=== PATIENT | female | born 1945 | race Two or more races ===

== ENCOUNTER → 2021-10-27 11:34 | Outpatient (BNVA) | payer OTHER, SELFPAY | PROVIDERS: PCP Internal Medicine; Visit Provider Nurse Practitioner Family | DX: Z13.89 Encounter for screening for other disorder (principal) ==

== ENCOUNTER → 2021-12-25 11:24 | Outpatient (BNVA) | payer OTHER, SELFPAY | PROVIDERS: PCP Internal Medicine; Visit Provider Nurse Practitioner Family | DX: G20 Parkinson's disease (principal) ==

== ENCOUNTER → 2022-11-19 10:52 | Outpatient (BNVA) | payer OTHER, SELFPAY | PROVIDERS: PCP Internal Medicine; Visit Provider Nurse Practitioner Family | DX: J32.9 Chronic sinusitis, unspecified (principal); G20 Parkinson's disease; K08.89 Other specified disorders of teeth and supporting structures; H92.09 Otalgia, unspecified ear ==

== ENCOUNTER 2022-12-18 10:12 | Outpatient (REF) | payer MEDICARE, SELFPAY ==
--- NOTE | ~2022-12-18 | CT_ITS ---
EXAMINATION: CT MAXILLOFACIAL WITHOUT CONTRAST CLINICAL INFORMATION: Other specified disorders of nose and nasal sinuses. COMPARISON: None. TECHNIQUE: Multidetector helical imaging was performed in the axial plane with generation of coronal and sagittal reformatted images. This CT examination was performed using dose optimization techniques as appropriate, variously including the following: *Automated exposure control *Adjustment of mA and/or kV according to patient size (this includes techniques or standardized protocols for targeted exams where dose is matched to indication/reason for exam; i.e. extremities or head) *Use of iterative reconstruction technique DLP: 76 mGy-cm. FINDINGS: There is severe mucosal thickening within the inferior frontal sinus with opacification of the frontoethmoidal recess and layering aerated secretions. There is moderate right ethmoid mucosal thickening more significant anteriorly. The right maxillary sinus is completely opacified with soft tissue noted opacifying the ethmoidal infundibulum. The left frontal sinus is clear. There is minimal left ethmoid mucosal thickening. There is mild mucosal thickening in the right sphenoid sinus with opacification of the sphenoethmoidal recess. There is lobular mucosal thickening along the left maxillary sinus floor. The nasal septum is essentially midline with a leftward projecting septal spur. The ethmoid roofs are symmetric. The lamina papyracea are intact. The carotid impression is covered with bone. There is periapical lucency about the right posterior maxillary molar the buccal roots appear dehiscent into the maxillary sinus floor. The mastoid air cells and visualized middle ear cavities are well aerated. The orbits are normal. The TMJs are unremarkable. The imaged portions of the brain demonstrate no acute abnormality. CT/CT sinus wo IV con IMPRESSION: Right ostiomeatal unit paranasal sinus mucosal thickening and opacification including opacification of the ethmoidal infundibulum. Aerated secretions seen in the right frontal sinus. Right posterior maxillary molar periapical disease is noted with dehiscence into the maxillary sinus floor, possibly reflecting odontogenic sinusitis. Essentially midline nasal septum with leftward projecting septal spur.
== END 2022-12-18 10:13 | disposition home or self-care (01) ==
LOC: HO.CT 10:12
PROVIDERS: PCP Internal Medicine; Visit Provider Nurse Practitioner Family
DX: K08.89 Other specified disorders of teeth and supporting structures (principal); J34.89 Other specified disorders of nose and nasal sinuses
CPT/HCPCS: 70486

== ENCOUNTER 2023-04-03 11:01 | Outpatient (AMB) | payer OTHER, SELFPAY ==
--- NOTE | 2023-04-03 11:15 | MHC.OFFVIS ---
Intake Vital Signs 04/03/23 11:16 Height 5 ft Weight 109 lb 2 oz BMI 21.3 BP 128/78 Blood Pressure Location Rt brachial Position Sitting Pulse 69 Pulse Source Pulse Oximeter Pulse Oximetry (%) 98 Oxygen Delivery Method Room Air Intake Visit Reasons: 4month follow up Intake Note: Patient presents for 4 month follow up. Patient states I've lost a lot of weight,I got sick at the begining of the year with sinus infection and have been loosing weight since then. Allergies oxycodone Allergy (Severe, Verified 04/03/23 11:17) Dizziness nitrofurantoin [From Macrobid] Allergy (Mild, Verified 04/03/23 11:17) Rash fexofenadine [From Omayra] Adverse Reaction (Mild, Verified 04/03/23 11:17) Headache Medication List - Last Reconciled 04/03/23 by KESHAV Kidd amlodipine-benazepril 5-20 mg 1 cap PO DAILY amoxicillin-pot clavulanate 1,000-62.5 mg 2 tabs PO Q12H 7 days ascorbate calcium (vitamin C) 500 mg PO DAILY aspirin 81 mg PO DAILY atorvastatin 10 mg PO DAILY carbidopa-levodopa 25-100 mg 1.5 tabs PO QID 30 days carbidopa-levodopa 36.25-145 mg ER (Rytary) 2 caps PO QID 30 days chair, wheel (Wheel chair) electric wheelchair evaluation fluticasone propionate 50 mcg/actuation 1 spray intranasal BID hydrochlorothiazide 12.5 mg PO DAILY multivitamin 1 tab PO DAILY omeprazole 20 mg PO DAILY pregabalin 100 mg PO TID 30 days ropinirole 0.25 mg PO TID 30 days vitamin B complex (B Complex-Vitamin B12 tablet) 1 tab PO DAILY HPI HPI Comments History of Present Illness Details 77-yr-old female presents for f/u visit. Since the last visit, sinus CT revealed right paranasal sinus dz and right posterior maxillary molar periapical dz with dehiscence into the maxillary sinus floor She had a 21-day course of ABT. She did develop an oral thrush which was treated and resolved. The headache/face pain has resolved. Her sense of smell and taste has not returned. Her appetite is absent- but is making herself eat. She is scheduled for the right upper molar excision. She is scheduled for f/u sinus CT and ENT f/u afterwards. She is also scheduled for upcoming eye surgery. Pt's current PD medication regimen: Rytary 35.25-145mg 2 caps qid. She states her son thinks she should come off her PD meds. She thinks maybe it makes her more mood is more irritable, especially towads her . ADL's: Ind- but slow. Swallowing: No issues Cough: Prone to coughing Drooling: None Orthostatic lightheadedness: Mild. Constipation: Mild- miralax, prunes and figs help. Freezing: Stable. Gait: Her balance is still off. She has not had the w/c eval yet. Stiffness: Some leg stiffness. Tremor: None Hallucinations: None Memory: Stable Sleep: Sleeps varies Other: Her neuropathic foot pain is more noticable. ? CT/CT sinus wo IV con IMPRESSION: Right ostiomeatal unit paranasal sinus mucosal thickening and opacification including opacification of the ethmoidal infundibulum. Aerated secretions seen in the right frontal sinus. Right posterior maxillary molar periapical disease is noted with dehiscence into the maxillary sinus floor, possibly reflecting odontogenic sinusitis. Essentially midline nasal septum with leftward projecting septal spur. [facility] Surgical History H/O foot surgery H/O hernia repair H/O: hysterectomy Social History Alcohol intake: never Patient Tobacco Use Status: Never used Tobacco Review of Systems Const All systems reviewed & are unremarkable except as noted in HPI and below Physical Exam Vital Signs: Last Vital Signs Pulse 69 04/03/23 11:16 BP 128/78 04/03/23 11:16 Pulse Ox 98 04/03/23 11:16 Oxygen Delivery Method Room Air 04/03/23 11:16 BMI result Body Mass Index 21.3 Const General: cooperative and no acute distress Resp Effort & Inspection: normal respiratory effort and able to speak in complete sentences Neuro Other: Cognition: A&O x's 3 Expression: decreased expression and blink Voice: hoarseness w/ hypophonia Tremor: none FFM: mild bradykinesia Foot taps: moderate bradykinesia Gait: Sitting upright in w/c. Psych: Pleasant affect. General: patient oriented x3 Assessment & Plan Assessment & Plan (1) Parkinson disease: Code(s): G20 - Parkinson's disease (2) Polyneuropathy: Comment: BUE EMG/NCS 2017: mild right median neuropathy at wrist; mild bilateral nerve entrapment at elbows; diffuse poly-sensory demyelinating neuropathy. BLE EMG/NCS 2017: BLE sural sensory neuropathy; right S1 radiculopathy w/ prolonged H reflex; BLE L5 chronic radiculopathy with peroneal/fibular reduced amplitude w/out conduction block. BLE skin biopsy: small fiber neuropathy. Code(s): G62.9 - Polyneuropathy, unspecified (3) Cerebral aneurysm: Code(s): I67.1 - Cerebral aneurysm, nonruptured Plan Decrease Rytary from 36.25-145mg- 2 caps qid to 23.75-95mg cap- 2 caps qid. Continue Pregabalin to 100mg tid- consider increasing in f/u. Previous med tx's: CD-LD- wearing off. Ropinirole at 0.25mg tid- not very effective. f/u brain MRA as scheduled. For electric w/c evaluation request- will resend order to [facility] pending. ? F/u w/ ENT and oral surgeon as scheduled. ? F/u in 3 months or sooner prn new/worsening s/s. Medications: New carbidopa-levodopa 23.75-95 mg ER (Rytary) divide evenly over waking hours 2 caps PO QID 30 days 240 caps 3RF Discontinued carbidopa-levodopa 25-100 mg Discontinued Reason: Doctor's Order 1.5 tabs PO QID 30 days 180 tabs 6RF carbidopa-levodopa 36.25-145 mg ER (Rytary) divide evenly over waking hours Discontinued Reason: Doctor's Order 2 caps PO QID 30 days 240 caps 3RF Coding Level of Care Code Est Pt Level 4 (41465) Diagnoses Parkinson disease G20 Polyneuropathy G62.9 Cerebral aneurysm I67.1
[2023-04-03 11:16] VITALS: BP 128/78; PULSE 69; O2SAT 98; BMI 21.3
== END 2023-04-03 11:54 | disposition home or self-care (01) ==
PROVIDERS: Visit Provider Nurse Practitioner Family
DX: G20 Parkinson's disease (principal); G62.9 Polyneuropathy, unspecified; I67.1 Cerebral aneurysm, nonruptured
CPT/HCPCS: 99214

== ENCOUNTER → 2023-04-03 11:01 | Outpatient (BNVA) | payer OTHER, SELFPAY | PROVIDERS: Visit Provider Nurse Practitioner Family | DX: J32.9 Chronic sinusitis, unspecified (principal); G20 Parkinson's disease; K08.89 Other specified disorders of teeth and supporting structures; H92.09 Otalgia, unspecified ear ==

== ENCOUNTER 2023-07-19 12:55 | Outpatient (AMB) | payer OTHER, SELFPAY ==
--- NOTE | 2023-07-19 12:57 | MHC.OFFVIS ---
Intake Vital Signs 07/19/23 12:58 Height 5 ft Weight 109 lb BMI 21.3 BP 110/76 Blood Pressure Location Rt brachial Position Sitting Pulse 76 Pulse Source Pulse Oximeter Pulse Oximetry (%) 99 Intake Visit Reasons: 3 mo f/u -Confirmed Intake Note: Patient presents for 3 month follow up. Allergies oxycodone Allergy (Severe, Verified 07/19/23 13:00) Dizziness nitrofurantoin [From Macrobid] Allergy (Mild, Verified 07/19/23 13:00) Rash fexofenadine [From Omayra] Adverse Reaction (Mild, Verified 07/19/23 13:00) Headache Medication List - Last Reconciled 07/19/23 by KESHAV Kidd amlodipine-benazepril 5-20 mg 1 cap PO DAILY amoxicillin-pot clavulanate 1,000-62.5 mg 2 tabs PO Q12H 7 days ascorbate calcium (vitamin C) 500 mg PO DAILY aspirin 81 mg PO DAILY atorvastatin 10 mg PO DAILY carbidopa-levodopa 23.75-95 mg ER (Rytary) 2 caps PO QID 30 days chair, wheel (Wheel chair) electric wheelchair evaluation fluticasone propionate 50 mcg/actuation 1 spray intranasal BID hydrochlorothiazide 12.5 mg PO DAILY multivitamin 1 tab PO DAILY omeprazole 20 mg PO DAILY pregabalin 100 mg PO TID 30 days ropinirole 0.25 mg PO TID 30 days vitamin B complex (B Complex-Vitamin B12 tablet) 1 tab PO DAILY HPI HPI Comments History of Present Illness Details 77-yr-old female presents for f/u visit, accompanied by her . Pt denies any significant interval medical changes. Pt's current PD medication regimen: Rytary 23.75-95mg 2 caps qid. She states that since decreasing the Rytary her Left leg is becoming more stuck, and her Right leg is becoming weaker, giving out while walking. However, she is less dizzy and foggy. Of note, she did stop her HCTZ d/t urinary frequency. She thinks she stopped this after the Rytary. She does think that her feet are swelling a bit more, but does not want to try it again as her urinary s/s have improved. She is complaint w/ compression socks. Denies any face pain. ADL's: Ind- but slow. Swallowing: No issues Cough: Prone to coughing Drooling: None Orthostatic lightheadedness: Better. Constipation: Increased- despite taking miralax 1 cap a couple of times a week, prunes and figs help. Freezing: Left leg is freezing Gait: She has had a few falls- d/t the leg freezing/weakness. Using a walker but it is more difficult. She did have electric w/c eval- but the w/c was too big/burdensome. She bought an alternate power chair on her own from [employer]. Stiffness: Leg stiffness. Tremor: None Hallucinations: None Memory: Feels a bit more word finding/stalling- worse since we reduced the Rytary, Sleep: Sleeping ok Other: Her feet may swell at night, and still has neuropathic foot pain. [facility] Surgical History H/O foot surgery H/O: hysterectomy H/O hernia repair Social History Alcohol intake: never Patient Tobacco Use Status: Never used Tobacco Review of Systems Const All systems reviewed & are unremarkable except as noted in HPI and below Physical Exam Vital Signs: Last Vital Signs Pulse 76 07/19/23 12:58 BP 110/76 07/19/23 12:58 Pulse Ox 99 07/19/23 12:58 BMI result Body Mass Index 21.3 Const General: cooperative and no acute distress HEENT Head: Yes normocephalic Resp Effort & Inspection: normal respiratory effort and able to speak in complete sentences Neuro Other: Cognition: A&O x's 3 Expression: decreased expression and blink Voice: hoarseness w/ hypophonia Tremor: none FFM: mild bradykinesia Foot taps: moderate bradykinesia Gait: Sitting upright in w/c. Psych: Pleasant affect. General: CN's II-XI intact bilaterally Psych Mental Status: mental status grossly normal Assessment & Plan Assessment & Plan (1) Parkinson's disease without dyskinesia: Code(s): G20.A1 - Parkinson's disease without dyskinesia, without mention of fluctuations (2) Frequent falls: Code(s): R29.6 - Repeated falls (3) Polyneuropathy: Comment: [facility]ONAL EMG/NCS 2017: mild right median neuropathy at wrist; mild bilateral nerve entrapment at elbows; diffuse poly-sensory demyelinating neuropathy. BLE EMG/NCS 2017: BLE sural sensory neuropathy; right S1 radiculopathy w/ prolonged H reflex; BLE L5 chronic radiculopathy with peroneal/fibular reduced amplitude w/out conduction block. BLE skin biopsy: small fiber neuropathy. Code(s): G62.9 - Polyneuropathy, unspecified (4) Constipation: Code(s): K59.00 - Constipation, unspecified Plan Increase Rytary from 23.75-95mg cap- 2 caps qid to 36.25-145mg- 2 caps qid- in hopes this helps her gait w/o exacerbating dizziness now that she has stopped HCTZ. Increase Miralax to 1/2-1 cap qod. Continue Pregabalin to 100mg tid- consider increasing in f/u. Home PT for PT eval & tx for home safety, gait, strength & endurance eval & tx. 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 Previous med tx's: CD-LD- wearing off. Ropinirole at 0.25mg tid- not very effective. Brain MRA- stable per pt. ? F/u in 3 months or sooner prn new/worsening s/s. Orders: [facility]errals [facility] Referral G20.A1 - Parkinson's disease without dyskinesia, without mention of fluctuations, G62.9 - Polyneuropathy, unspecified, R29.6 - Repeated falls Medications: Refilled carbidopa-levodopa 36.25-145 mg ER (Rytary) divide evenly over waking hours 2 caps PO QID 30 days 240 caps 3RF Discontinued carbidopa-levodopa 23.75-95 mg ER (Rytary) divide evenly over waking hours Discontinued Reason: Doctor's Order 2 caps PO QID 30 days 240 caps 3RF Coding Level of Care Code Est Pt Level 4 (51669) Diagnoses Parkinson's disease without dyskinesia G20.A1 Frequent falls R29.6 Polyneuropathy G62.9 Constipation K59.00
[2023-07-19 12:58] VITALS: BP 110/76; PULSE 76; O2SAT 99; BMI 21.3
== END 2023-07-19 13:52 | disposition home or self-care (01) ==
PROVIDERS: PCP Internal Medicine; Visit Provider Nurse Practitioner Family
DX: G20.A1 Parkinson's disease without dyskinesia, without mention of fluctuations (principal); R29.6 Repeated falls; G62.9 Polyneuropathy, unspecified; K59.00 Constipation, unspecified
CPT/HCPCS: 99214

== ENCOUNTER → 2023-07-19 12:55 | Outpatient (BNVA) | payer OTHER, SELFPAY | PROVIDERS: PCP Internal Medicine; Visit Provider Nurse Practitioner Family ==

== ENCOUNTER 2023-08-29 10:32 | Outpatient (REF) | payer OTHER, SELFPAY ==
--- NOTE | ~2023-08-29 | XR_ITS ---
EXAMINATION: XR FOOT, RIGHT CLINICAL INFORMATION: Pain. COMPARISON: None available. TECHNIQUE: AP, lateral, and oblique views of the right foot. FINDINGS: There is bony demineralization. There has been a prior calcaneal talar fusion, with 2 orthopedic screws are seen applied to the talus and calcaneus. An orthopedic plate and fixator screws are applied to the first metatarsal shaft. There is a pes cavus configuration. No acute fracture or dislocation is seen. There is no abnormal bone erosion. This no focal soft tissue swelling, gas or foreign body. XR/XR foot RT min 3V IMPRESSION: There are postoperative changes, as detailed. There is a pes cavus configuration. No acute fracture, dislocation or right joint effusion is seen. There is no abnormal bone erosion.
== END 2023-08-29 10:33 | disposition home or self-care (01) ==
LOC: HO.XRAY 10:32
PROVIDERS: Visit Provider Nurse Practitioner Family
DX: M79.671 Pain in right foot (principal); M79.89 Other specified soft tissue disorders; Z98.890 Other specified postprocedural states
CPT/HCPCS: 73630

== ENCOUNTER → 2023-10-30 10:38 | Outpatient (BNVA) | payer OTHER, SELFPAY | PROVIDERS: PCP Internal Medicine; Visit Provider Physical Medicine & Rehabilitation ==

== ENCOUNTER 2023-10-30 10:40 | Outpatient (AMB) | payer OTHER, SELFPAY ==
--- NOTE | 2023-10-30 10:43 | A.OFFVIS_ITS ---
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 hx of a fall about 2 months ago. She states taking Tylenol gave her mild relief. Patient reports that her foot is still a bit swollen. Patient informed me that he foot is a bit better, however she wants to make sure everything is okay. Allergies oxycodone Allergy (Severe, Verified 10/30/23 10:47) Dizziness nitrofurantoin [From Macrobid] Allergy (Mild, Verified 10/30/23 10:47) Rash fexofenadine [From Omayra] Adverse Reaction (Mild, Verified 10/30/23 10:47) Headache Medication List - Last Reconciled 10/30/23 by Blanka Sosa MD amlodipine-benazepril 5-20 mg 1 cap PO DAILY amoxicillin-pot clavulanate 1,000-62.5 mg 2 tabs PO Q12H 7 days ascorbate calcium (vitamin C) 500 mg PO DAILY aspirin 81 mg PO DAILY atorvastatin 10 mg PO DAILY carbidopa-levodopa 36.25-145 mg ER (Rytary) 2 caps PO QID 30 days chair, wheel (Wheel chair) electric wheelchair evaluation fluticasone propionate 50 mcg/actuation 1 spray intranasal BID hydrochlorothiazide 12.5 mg PO DAILY multivitamin 1 tab PO DAILY omeprazole 20 mg PO DAILY pregabalin 100 mg PO TID 30 days [right AFO with a lift As directed] ropinirole 0.25 mg PO TID 30 days vitamin B complex (B Complex-Vitamin B12 tablet) 1 tab PO DAILY HPI HPI Comments History of Present Illness Details Here with . History of Parkinsons. History of right foot surgery for clubfoot 2019. 6 months after surgery, started to fall more. Last fall 2 months ago. Still getting [facility] and home PT, twice a week. Notes from PT reviewed. PT was concerned that it is still swollen. Patient says it is better because after the fall, it was severely bruised and swollen. Has been using mery wrap and compression stockings. She stopped mery wrap already. Soak in hot water. Limited ambulation, uses walker. Chronic right footdrop. Has an old AFO which she has not been using. [facility] Medical History (Updated 10/30/23 @ 12:49 by Blanka Sosa MD) Right foot drop Surgical History (Updated 08/28/23 @ 13:38 by KESHAV Kidd) H/O foot surgery H/O: hysterectomy H/O hernia repair Social History Alcohol intake: never Patient Tobacco Use Status: Never used Tobacco Review of Systems Const All systems reviewed & are unremarkable except as noted in HPI and below Physical Exam Vital Signs: BMI result Body Mass Index 21.3 Results Reviewed Results Reviewed: I reviewed records from the following: Neurology Assessment & Plan Assessment & Plan (1) Right foot drop: Code(s): M21.371 - Foot drop, right foot (2) H/O foot surgery: Code(s): Z98.890 - Other specified postprocedural states (3) Frequent falls: Code(s): R29.6 - Repeated falls Plan I do not see anymore ongoing signs of ankle/foot inflammation or injury. However she continues to be a fall risk given chronic foot drop. Most important at this time is to figure out if she would benefit from a new AFO. Would coordinate with her current PT. Discussed that she will need referral to a tonger. Talked about what the new AFO coudl look like. I requested that she gives her PT my contact information. We will coordinate with them about prescription for AFO, referral and gait training. Assessment and plan discussed with patient, and patient was agreeable. All questions were answered thoroughly. Total of 45 minutes remove all spent today including chart review, results review, history taking, physical examination, discussion of assessment and plan, and coordination of care. [ ] Blanka Sosa MD, DILEEP Board Certified, [place] [employer] and Rehabilitation (ABPMR) Board Certified, [place] Board of Electrodiagnostic Medicine (ABEM) Coding Level of Care Code New Pt Level 4 (97209) Diagnoses Right foot drop M21.371 H/O foot surgery Z98.890 Frequent falls R29.6
[2023-10-30 10:47] VITALS: BMI 21.3
== END 2023-10-30 11:11 | disposition home or self-care (01) ==
PROVIDERS: PCP Internal Medicine; Visit Provider Physical Medicine & Rehabilitation
DX: M21.371 Foot drop, right foot (principal); Z98.890 Other specified postprocedural states; R29.6 Repeated falls
CPT/HCPCS: 99204

== ENCOUNTER 2023-11-18 12:49 | Outpatient (AMB) | payer OTHER, SELFPAY ==
--- NOTE | 2023-11-18 13:05 | A.OFFVIS_ITS ---
Intake Vital Signs 11/18/23 13:06 Height 5 ft Weight 114 lb BMI 22.3 Intake Visit Reasons: 4 mo f/u -LVM Intake Note: Patient presents for 4 month follow up. Allergies oxycodone Allergy (Severe, Verified 11/18/23 13:09) Dizziness nitrofurantoin [From Macrobid] Allergy (Mild, Verified 11/18/23 13:09) Rash fexofenadine [From Omayra] Adverse Reaction (Mild, Verified 11/18/23 13:09) Headache Medication List - Last Reconciled 11/18/23 by KESHAV Kidd amlodipine-benazepril 5-20 mg 1 cap PO DAILY amoxicillin-pot clavulanate 1,000-62.5 mg 2 tabs PO Q12H 7 days ascorbate calcium (vitamin C) 500 mg PO DAILY aspirin 81 mg PO DAILY atorvastatin 10 mg PO DAILY carbidopa-levodopa 36.25-145 mg ER (Rytary) 2 caps PO QID 30 days chair, wheel (Wheel chair) electric wheelchair evaluation fluticasone propionate 50 mcg/actuation 1 spray intranasal BID hydrochlorothiazide 12.5 mg PO DAILY leg brace (Ankle Brace) As directed multivitamin 1 tab PO DAILY omeprazole 20 mg PO DAILY pregabalin 100 mg PO TID 30 days [right AFO with a lift As directed] ropinirole 0.25 mg PO TID 30 days vitamin B complex (B Complex-Vitamin B12 tablet) 1 tab PO DAILY HPI HPI Comments History of Present Illness Details 78-yr-old female presents for f/u visit . Since the last visit, pt had a fall. States she is not sure hwat happened, but stood and feel from the toilet. Afterwards, she developed right distal foot pain, swelling, ecchymosis. She did have x-rays, and had f/u appt w/ [facility] physiatry. She is being fitted for a new RLE AFO, as she has a chronic right foot drop. The right foot pain has resolved, but the foot still has some swelling. She continues to work w/ home PT. Pt's current PD medication regimen: 36.25-145mg- 2 caps qid, she is not sure if has helped w/ the freezing gait episodes, as she has not been walking as much d/t the right foot pain. Occasionally, may have some biltemporal headache. The left maxillary sinus may be sore at times- where she had the dental procedure. ADL's: Ind- but slow. Swallowing: Sometimes may gag. Cough: Prone to coughing Drooling: None Orthostatic lightheadedness: Is noticing orthostatic lightheadedness, feels that it makes her need to hold onto something. States this started after sh ehad her neck surgery. Thinks she is drinking enough fluids. Constipation: Can be constipated- despite eating prunes/figs. Miralax may help if taken with prune juice- using just prn. Freezing: Has not noticed. Gait: Did have another fall- fell at her sister's house, was trying to help her sister w/ her phone, was using her sister's walker and could not move/turn, as the space is crowded. Her son does not want her to visit their anymore. She bought an alternate power chair on her own from [facility]. Stiffness: Leg stiffness. She is having increased difficulty w/ bed mobility. Tremor: None Hallucinations: None Memory: Word finding/stalling- varies, Sleep: Sleeping ok- but is a light sleeper. Other: The pregabalin continues to manage her neuropathic foot pain. She is noticing low back pain which moves into left buttock region, starts around 3am- improves when she gets up. [facility] Medical History (Updated 11/18/23 @ 20:54 by KESHAV Kidd) Parkinson disease Right foot drop Surgical History H/O foot surgery H/O: hysterectomy H/O hernia repair Social History Alcohol intake: never Patient Tobacco Use Status: Never used Tobacco Review of Systems Const All systems reviewed & are unremarkable except as noted in HPI and below Physical Exam Vital Signs: BMI result Body Mass Index 22.3 Const General: cooperative and no acute distress Resp Effort & Inspection: normal respiratory effort and able to speak in complete sentences Neuro Other: Cognition: A&O x's 3 Expression: decreased expression and blink Voice: hoarseness w/ hypophonia Tremor: none FFM: mild bradykinesia Foot taps: moderate bradykinesia Gait: Sitting upright in w/c. Psych: Pleasant affect. Back: Left > right paraspinal lumbar tightness. Deep tendon reflexes (DTR's): Right patellar reflex intensity grade: 2+ and Left patellar reflex intensity grade: 2+ Assessment & Plan Assessment & Plan (1) Parkinson's disease without dyskinesia: Code(s): G20.A1 - Parkinson's disease without dyskinesia, without mention of fluctuations (2) Polyneuropathy: Comment: BUE EMG/NCS 2017: mild right median neuropathy at wrist; mild bilateral nerve entrapment at elbows; diffuse poly-sensory demyelinating neuropathy. BLE EMG/NCS 2017: BLE sural sensory neuropathy; right S1 radiculopathy w/ prolonged H reflex; BLE L5 chronic radiculopathy with peroneal/fibular reduced amplitude w/out conduction block. BLE skin biopsy: small fiber neuropathy. Code(s): G62.9 - Polyneuropathy, unspecified (3) Cerebral aneurysm: Code(s): I67.1 - Cerebral aneurysm, nonruptured Plan Continue Rytary 36.25-145mg- 2 caps 4 x's per day- try to take the last dose right at bedtime, in hopes this helps bed mobility and low back pain. Trial Magnesium Oxide 400mg at bedtime- to reduce muscle tightness and hopefully low back pain. Increase Miralax to 1/2-1 cap every other day.. Continue Pregabalin 100mg 3 x's per day. Continue home PT. Follow-up w/ physiatry as scheduled. Concur w/ right AFO fitting. Previous med tx's: CD-LD- wearing off. Ropinirole at 0.25mg tid- not very effective. Recent Brain MRA- stable per pt. Printed instructions shared w/ pt. ? F/u in 3-6 months or sooner prn new/worsening s/s. Medications: New magnesium oxide may hold for loose stools 400 mg PO BEDTIME 30 tabs 6RF 30 days Coding Level of Care Code Est Pt Level 4 (50452) Diagnoses Parkinson's disease without dyskinesia G20.A1 Polyneuropathy G62.9 Cerebral aneurysm I67.1
[2023-11-18 13:06] VITALS: BMI 22.3
== END 2023-11-18 14:02 | disposition home or self-care (01) ==
PROVIDERS: PCP Internal Medicine; Visit Provider Nurse Practitioner Family
DX: G20.A1 Parkinson's disease without dyskinesia, without mention of fluctuations (principal); G62.9 Polyneuropathy, unspecified; I67.1 Cerebral aneurysm, nonruptured
CPT/HCPCS: 99214

== ENCOUNTER → 2023-11-18 12:49 | Outpatient (BNVA) | payer OTHER, SELFPAY | PROVIDERS: PCP Internal Medicine; Visit Provider Nurse Practitioner Family ==

== ENCOUNTER 2024-01-01 10:56 | Outpatient (AMB) | payer OTHER, SELFPAY ==
[2024-01-01 11:03] VITALS: BMI 22.3
--- NOTE | 2024-01-01 11:03 | MHC.OFFVIS ---
Vital Signs 01/01/24 11:03 Height 5 ft Weight 114 lb BMI 22.3 Intake Visit Reasons: OV- Pain in right foot Intake Note: Scooter is an 78 year old female who presents today for a follow up of her right foot pain, at her last visit she was given a script for a custom AFO for foot drop. Patient reports that she is still having swelling, her pain is improving. She complains of heavy orthtic shoes. Allergies oxycodone Allergy (Severe, Verified 01/01/24 11:06) Dizziness nitrofurantoin [From Macrobid] Allergy (Mild, Verified 01/01/24 11:06) Rash fexofenadine [From Omayra] Adverse Reaction (Mild, Verified 01/01/24 11:06) Headache Medication List - Last Reconciled 01/01/24 by Blanka Sosa MD amlodipine-benazepril 5-20 mg 1 cap PO DAILY amoxicillin-pot clavulanate 1,000-62.5 mg 2 tabs PO Q12H 7 days ascorbate calcium (vitamin C) 500 mg PO DAILY aspirin 81 mg PO DAILY atorvastatin 10 mg PO DAILY carbidopa-levodopa 36.25-145 mg ER (Rytary) 2 caps PO QID 30 days chair, wheel (Wheel chair) electric wheelchair evaluation fluticasone propionate 50 mcg/actuation 1 spray intranasal BID hydrochlorothiazide 12.5 mg PO DAILY leg brace (Ankle Brace) As directed magnesium oxide 400 mg PO BEDTIME 30 days multivitamin 1 tab PO DAILY omeprazole 20 mg PO DAILY pregabalin 100 mg PO TID 30 days [right AFO with a lift As directed] ropinirole 0.25 mg PO TID 30 days vitamin B complex (B Complex-Vitamin B12 tablet) 1 tab PO DAILY HPI Comments Details: Here with and friend. History of Parkinsons. History of right foot surgery for clubfoot 2020. 6 months after surgery, started to fall more. Last fall 2 months ago. Still getting [facility] and home PT, twice a week. Notes from PT reviewed. PT was concerned that it is still swollen. Patient says it is better because after the fall, it was severely bruised and swollen. Has been using mery wrap and compression stockings. She stopped mery wrap already. Soak in hot water. Limited ambulation, uses walker. Chronic right footdrop. Has an old AFO which she has not been using. Finished course of home PT but has been requested for more now that she has the new right AFO. She complains of the new shoe is heavy. Stands and transfers independently. Hand held for gait; with walker inside the house. 6 minute walk the other day, with walker. [facility] Medical History (Updated 11/18/23 @ 20:54 by KESHAV Kidd) Parkinson disease Right foot drop Surgical History H/O foot surgery H/O: hysterectomy H/O hernia repair Social History Alcohol intake: never Patient Tobacco Use Status: Never used Tobacco Physical Exam Vital Signs: BMI result Body Mass Index 22.3 Sits on wheelchair. Right foot drop, 1/5. No increased tone on right lower leg. No clonus. Const General: cooperative and no acute distress Orientation/consciousness: patient oriented x3 Resp Effort & Inspection: normal respiratory effort and able to speak in complete sentences Neuro General: patient oriented x3 Psych Attitude: cooperative Thought process: Normal thought process present Results Reviewed Results Reviewed: I reviewed records from the following: Neurology BUE EMG/NCS 2017: mild right median neuropathy at wrist; mild bilateral nerve entrapment at elbows; diffuse poly-sensory demyelinating neuropathy. BLE EMG/NCS 2017: BLE sural sensory neuropathy; right S1 radiculopathy w/ prolonged H reflex; BLE L5 chronic radiculopathy with peroneal/fibular reduced amplitude w/out conduction block. BLE skin biopsy: small fiber neuropathy. Assessment & Plan Assessment & Plan (1) Right foot drop: Code(s): M21.371 - Foot drop, right foot Category: Medical (2) H/O foot surgery: Code(s): Z98.890 - Other specified postprocedural states Category: Surgical (3) Frequent falls: Code(s): R29.6 - Repeated falls Category: Medical Plan Right foot drop in setting of Parkinsons and previous foot surgery. Improved appearance, without signs of acute injury or inflammation. No signs of spasticity or dystonia on right foot. Now wearing now AFO in new shoe. Understadable that this would feel heavy. That is why she needs continued PT at home to get used to the AFO with gait. Can remove AFO when at rest or sleeping. Need to wear the AFO when she will be walking. Elevate when at rest. Discussed fall prevention. Assessment and plan discussed with patient, and patient was agreeable. All questions were answered thoroughly. Follow up 6 months. Blanka Sosa MD, DILEEP Board Certified, [place] [employer] and [employer] (ABPMR) Board Certified, [place] [employer] (ABEM) Coding Level of Care Code Est Pt Level 3 (55146) Diagnoses Right foot drop M21.371 H/O foot surgery Z98.890 Frequent falls R29.6
== END 2024-01-01 11:21 | disposition home or self-care (01) ==
PROVIDERS: PCP Internal Medicine; Visit Provider Physical Medicine & Rehabilitation
DX: M21.371 Foot drop, right foot (principal); R29.6 Repeated falls
CPT/HCPCS: 99213

== ENCOUNTER → 2024-01-01 10:56 | Outpatient (BNVA) | payer OTHER, SELFPAY | PROVIDERS: PCP Internal Medicine; Visit Provider Physical Medicine & Rehabilitation ==

== ENCOUNTER 2024-05-20 11:24 | Outpatient (AMB) | payer OTHER, SELFPAY ==
--- NOTE | 2024-05-20 11:28 | MHC.OFFVIS ---
Vital Signs 05/20/24 11:29 Height 5 ft Weight 114 lb BMI 22.3 BP 124/70 Blood Pressure Location Lt brachial Position Sitting Pulse 74 Pulse Source Pulse Oximeter Pulse Oximetry (%) 95 Oxygen Delivery Method Room Air Intake Visit Reasons: Follow up Precision Devices Inspector/Tester Required: No Accompanied by: Self / Same As Patient Allergies oxycodone Allergy (Severe, Verified 05/20/24 11:33) Dizziness nitrofurantoin [From Macrobid] Allergy (Mild, Verified 05/20/24 11:33) Rash fexofenadine [From Omayra] Adverse Reaction (Mild, Verified 05/20/24 11:33) Headache Medication List - Last Reconciled 05/20/24 by KESHAV Kidd amlodipine-benazepril 5-20 mg 1 cap PO DAILY amoxicillin-pot clavulanate 1,000-62.5 mg 2 tabs PO Q12H 7 days ascorbate calcium (vitamin C) 500 mg PO DAILY aspirin 81 mg PO DAILY atorvastatin 10 mg PO DAILY carbidopa-levodopa 36.25-145 mg ER (Rytary) 2 caps orally 5 times per day; divide evenly over waking hours 30 days chair, wheel (Wheel chair) electric wheelchair evaluation fluticasone propionate 50 mcg/actuation 1 spray intranasal BID hydrochlorothiazide 12.5 mg PO DAILY leg brace (Ankle Brace) As directed magnesium oxide 400 mg PO BEDTIME 30 days multivitamin 1 tab PO DAILY omeprazole 20 mg PO DAILY pregabalin 25 mg PO TID 30 days pregabalin 100 mg PO TID 30 days [right AFO with a lift As directed] ropinirole 0.25 mg PO TID 30 days vitamin B complex (B Complex-Vitamin B12 tablet) 1 tab PO DAILY HPI Comments Details: 78-yr-old female presents for f/u visit of Parkinson's. Pt is accompanied by her , Chiki. Pt states she is not sure her PD tx is working anymore, as she can no longer walk. States she can walk in a pool with assist, but not on the ground without assist. 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 She states she can transfer, however needs assist to get into bed as her bed is a bit too high. When she falls, she states the walker goes to far ahead of her, and then she just falls forward. States her RLE is not strong enough to allow her to lift/step with her LLE. Her BLE can still be swollen. She completed PT about 3 months, but at that time she was still walking. Pt's current PD medication regimen: 36.25-145mg- 2 caps qid, she is not sure if has helped w/ the freezing gait episodes, as she has not been walking as much d/t the right foot pain. Occasionally, may have some biltemporal headache. The left maxillary sinus may be sore at times- where she had the dental procedure. ADL's: helping her get into/out of tub. Swallowing: Denies Cough: Prone to coughing or wanting to cough. Drooling: None. Mouth is dry at times. Orthostatic lightheadedness: Is noticing orthostatic lightheadedness. She is trying to drink enough fluids. Constipation: Can be a little constipated- eating prunes/figs, miralax may help if taken with prune juice- using just prn. Freezing: Has not noticed. Gait: as above Stiffness: Leg stiffness. Sometimes neck stiffness after exercising. Tremor: None Hallucinations: None Memory: Feels more forgetful. Sleep: Sleeping ok- but is a light sleeper. Other: States the pregabalin is not working as well for neuropathic foot pain. No recent back pain. [facility] Medical History Parkinson disease Right foot drop Surgical History H/O foot surgery H/O: hysterectomy H/O hernia repair Social History Alcohol intake: never Patient Tobacco Use Status: Never used Tobacco Physical Exam Vital Signs: Last Vital Signs Pulse 74 05/20/24 11:29 BP 124/70 05/20/24 11:29 Pulse Ox 95 05/20/24 11:29 Oxygen Delivery Method Room Air 05/20/24 11:29 BMI result Body Mass Index 22.3 Const General: cooperative and no acute distress Resp Effort & Inspection: normal respiratory effort and able to speak in complete sentences Neuro Other: Cognition: A&O x's 3 Expression: decreased expression and blink Voice: hoarseness w/ hypophonia Tremor: mild left 5th finger rest tremor Dyskinesia: Mild BLE dyskinesia FFM: bradykinesia Foot taps: bradykinesia Gait: Sitting upright in w/c. Psych: Pleasant affect. Assessment & Plan Assessment & Plan (1) Parkinson's disease with dyskinesia: Code(s): G20.B1 - Parkinson's disease with dyskinesia, without mention of fluctuations Category: Medical (2) Polyneuropathy: Comment: BUE EMG/NCS 2017: mild right median neuropathy at wrist; mild bilateral nerve entrapment at elbows; diffuse poly-sensory demyelinating neuropathy. BLE EMG/NCS 2017: BLE sural sensory neuropathy; right S1 radiculopathy w/ prolonged H reflex; BLE L5 chronic radiculopathy with peroneal/fibular reduced amplitude w/out conduction block. BLE skin biopsy: small fiber neuropathy. Code(s): G62.9 - Polyneuropathy, unspecified Category: Medical (3) Cerebral aneurysm: Code(s): I67.1 - Cerebral aneurysm, nonruptured Category: Medical (4) Right foot drop: Code(s): M21.371 - Foot drop, right foot Category: Medical (5) Bradykinesia: Code(s): R25.8 - Other abnormal involuntary movements Category: Medical (6) Gait difficulty: Code(s): R26.9 - Unspecified abnormalities of gait and mobility Category: Medical Plan Discussed PD natural trajectory and reasonable expectations from PD tx's. Increase Rytary 36.25-145mg from 2 caps 4 x's per day to 2 caps 5 x's per day. Continue Magnesium Oxide 400mg at bedtime. Continue Miralax to 1/2-1 cap every other day prn. Increase Pregabalin from 100mg 3 x's per day to 125mg (100mg + 25mg) po tid- if insurance will not cover- try 200mg bid though this is a larger dose increase. Pt advsied to have home PT eval & tx for gait, bradkinesia, adaptive equipment, home safety eval. Pt is homebound d/t no longer walking, right foot drop, high fall risk, requires assist and assistive device d/t advancing Parkinson's disease. Follow-up w/ physiatry as scheduled. Previous med tx's: CD-LD- wearing off. Ropinirole at 0.25mg tid- not very effective. Recent Brain MRA- stable per pt. ? F/u in 3-6 months or sooner prn new/worsening s/s. Orders: [facility]errals [facility] Referral G20.A1 - Parkinson's disease without dyskinesia, without mention of fluctuations, G62.9 - Polyneuropathy, unspecified, M21.371 - Foot drop, right foot, R25.8 - Other abnormal involuntary movements, R26.9 - Unspecified abnormalities of gait and mobility Medications: New pregabalin take w/ 100mg cap to total 125mg per dose 25 mg PO TID 30 days 90 caps 3RF Changed From carbidopa-levodopa 36.25-145 mg ER (Rytary) divide evenly over waking hours 2 caps PO QID 30 days 240 caps 0RF To carbidopa-levodopa 36.25-145 mg ER (Rytary) 2 caps orally 5 times per day; divide evenly over waking hours 30 days 300 caps 6RF From pregabalin 100 mg PO TID 30 days 90 caps 4RF To pregabalin take w/ 25mg cap to total 125mg per dose 100 mg PO TID 30 days 90 caps 4RF Refilled magnesium oxide may hold for loose stools 400 mg PO BEDTIME 30 days 30 tabs 6RF Coding Level of Care Code Est Pt Level 4 (97056) Complex EM visit Add On G2211 Diagnoses Parkinson's disease with dyskinesia G20.B1 Polyneuropathy G62.9 Cerebral aneurysm I67.1 Right foot drop M21.371 Bradykinesia R25.8 Gait difficulty R26.9
[2024-05-20 11:29] VITALS: BP 124/70; PULSE 74; O2SAT 95; BMI 22.3
== END 2024-05-20 12:22 | disposition home or self-care (01) ==
PROVIDERS: PCP Internal Medicine; Visit Provider Nurse Practitioner Family
DX: G20.B1 Parkinson's disease with dyskinesia, without mention of fluctuations (principal); G62.9 Polyneuropathy, unspecified; I67.1 Cerebral aneurysm, nonruptured; M21.371 Foot drop, right foot; R25.8 Other abnormal involuntary movements; R26.9 Unspecified abnormalities of gait and mobility
CPT/HCPCS: 99214

== ENCOUNTER → 2024-05-20 11:24 | Outpatient (BNVA) | payer OTHER, SELFPAY | PROVIDERS: PCP Internal Medicine; Visit Provider Nurse Practitioner Family ==

== ENCOUNTER 2024-12-09 12:52 | Outpatient (AMB) | payer OTHER, SELFPAY ==
[2024-12-09 13:08] VITALS: BP 140/80; PULSE 72; O2SAT 97
--- NOTE | 2024-12-09 13:08 | MHC.OFFVIS ---
Vital Signs 12/09/24 13:08 Height 5 ft BP 140/80 H Blood Pressure Location Rt brachial Position Sitting Pulse 72 Pulse Source Pulse Oximeter Pulse Oximetry (%) 97 Oxygen Delivery Method Room Air Intake Visit Reasons: Follow Up Intake Note: Patient presents follow up for Parkinson's. Medical Physics Researcher Required: No Accompanied by: Spouse Allergies oxycodone Allergy (Severe, Verified 12/09/24 13:08) Dizziness nitrofurantoin [From Macrobid] Allergy (Mild, Verified 12/09/24 13:08) Rash fexofenadine [From Omayra] Adverse Reaction (Mild, Verified 12/09/24 13:08) Headache HPI Comments Details: 79-yr-old female presents for f/u visit of Parkinson's. Pt is accompanied by her , Chiki, and her son, Kurt. Pt's son would like to discuss having patient has stopped all of her medication prescribed by Neurology, as he does not agree with the Parkinson's disease diagnosis and believes she is having a number of side effects from her medications, including breathing difficulty/SOB, tightness of chest, behavior changes, depression, stomach pain, black stool, tiredness/weakness, easily falling asleep, constipation, dry mouth, difficulty sleeping, lack of sense of taste. States that patient has had lack of sense of smell for many years following a nasal spray treatment. Since the last visit, patient was tried on entacapone as her insurance required trial of entacapone prior to continuing to cover Rytary. Patient had felt that her respiratory symptoms were secondary to the Rytary- we had reached out to PCP office, and since patient has undergone echocardiogram showing reduced LV EF 45-50%, Patient herself states that the Rytary is no longer working for her, states she can not move as well as she used to. Pt's current PD medication regimen: 36.25-145mg- 2 caps qam, 1 cap every 4 hours x's 3-4 doses. Entacapone 200mg 4 x's per day. Pregabalin 125mg tid. Patient herself reports: Occasionally, may have some sinus headache. The left maxillary sinus may be sore at times- where she had the dental procedure. ADL's: needing to help her more- now needs help to bathe as well. Swallowing: Has to be careful to swallow. May cough on water or solid foods, but more so water. Cough: Prone to coughing and SOB when laying down. Drooling: Mild drooling when laying down. Mouth is dry at times. Orthostatic lightheadedness: Is noticing orthostatic lightheadedness. She is trying to drink enough fluids. GI: denies acid reflux, heartburn. Constipation: Can be a little constipated- eating prunes/figs, miralax may help if taken with prune juice- taking every other day now. Is taking a MVI w/ iron. Freezing: Notes freezing of RUE when eating. RLE difficulty initiating movement. Gait: Is not walking. Tries o do some standing exercises at the Stiffness: Leg stiffness. Muscle achiness. Tremor: None Hallucinations: None Mood: Pt states it is very bad , and now finds herself screaming at family- which is out of character for her. Patient states her mood was already poor at the last visit, however she did not mention it. Memory: Feels memory is worse- sometimes wants to say something and forgets the word. Sleep: Not sleeping as well. Prone to ruminating thoughts. Sleeps with HOB slightly elevated- as laying flat increases SOB and room spinning dizziness- has an electric adjustable bed. Other: States her feet are not painful but are dark/bluish since the last fall. Pt believes the increase in the pregabalin is helping. The LLE is still cold and stiff. FORMERLY [facility], [facility] Medical History Parkinson disease Right foot drop Surgical History H/O foot surgery H/O: hysterectomy H/O hernia repair Social History Alcohol intake: never Patient Tobacco Use Status: Never used Tobacco Physical Exam Vital Signs: Last Vital Signs Pulse 72 12/09/24 13:08 BP 140/80 H 12/09/24 13:08 Pulse Ox 97 12/09/24 13:08 Oxygen Delivery Method Room Air 12/09/24 13:08 Const General: cooperative and no acute distress Resp Effort & Inspection: normal respiratory effort and able to speak in complete sentences Neuro Other: Cognition: A&O x's 3 Expression: decreased expression and blink Voice: hoarseness w/ hypophonia Tremor: No visible rest tremor today. Dyskinesia: No dyskinesia today Tone: BUE rigidity FFM: Marked bradykinesia BUE OTONIEL: Poor fluidity Foot taps: Marked bradykinesia Gait: Sitting upright in w/c. Psych: Pleasant affect. Results Reviewed Results Reviewed: 10/28/2024, TTE procedure:Echo Complete-Doppler, Colorflow, M-Mode. Completed at [facility]. Summary The left ventricular ejection fraction is 45-50 %. There is mild global hypokinesis of the left ventricle. Normal right ventricular size and function. No significant valvular disease. The ascending aorta is mildly dilated at 4.0 cm (leading edge-leading edge, indexed for sex and BSA). 06/16/2024, head MRA/MRV without contrast: Completed at [facility] FINDINGS: Anterior circulation: The bilateral intracranial internal carotid arteries are patent. The bilateral anterior cerebral arteries and bilateral middle cerebral artery branches are patent. Redemonstrated is a medially projecting outpouching arising from the ophthalmic segment of the right internal carotid artery measuring approximately 3 x 2 mm, unchanged. No new aneurysm is identified. Posterior circulation: The bilateral intracranial vertebral arteries, basilar artery, superior cerebellar arteries, and bilateral posterior cerebral arteries are patent. The right posterior communicating artery is robust and patent. The left posterior commuting artery is patent. Other findings: Limited visualization of the intracranial and extracranial structures demonstrates no significant abnormality. IMPRESSION: Stable right ophthalmic ICA aneurysm. No new aneurysm. Assessment & Plan Assessment & Plan (1) Parkinson's disease with dyskinesia: Code(s): G20.B1 - Parkinson's disease with dyskinesia, without mention of fluctuations Category: Medical Qualifiers: Fluctuating manifestations: with fluctuating manifestations Qualified Code(s): G20.B2 - Parkinson's disease with dyskinesia, with fluctuations (2) Polyneuropathy: Comment: BUE EMG/NCS 2017: mild right median neuropathy at wrist; mild bilateral nerve entrapment at elbows; diffuse poly-sensory demyelinating neuropathy. BLE EMG/NCS 2017: BLE sural sensory neuropathy; right S1 radiculopathy w/ prolonged H reflex; BLE L5 chronic radiculopathy with peroneal/fibular reduced amplitude w/out conduction block. BLE skin biopsy: small fiber neuropathy. Code(s): G62.9 - Polyneuropathy, unspecified Category: Medical (3) Cerebral aneurysm: Comment: Followed by Neurosurgery Code(s): I67.1 - Cerebral aneurysm, nonruptured Category: Medical (4) Right foot drop: Code(s): M21.371 - Foot drop, right foot Category: Medical (5) Bradykinesia: Code(s): R25.8 - Other abnormal involuntary movements Category: Medical (6) Gait difficulty: Code(s): R26.9 - Unspecified abnormalities of gait and mobility Category: Medical Plan We will request recent labs and notes from PCP office. Upon review, consider additional lab testing to round out workup for short-term memory and mood changes. Discussed that I do not recommend the patient stop her dopaminergic therapy, as in the past when she has reduced her levodopa dose, she has had increased bradykinesia and rigidity, and as patient is actually more bradykinetic, rigid, and now requiring more physical assistance, patient's dopaminergic therapy likely needs to be optimized rather than reduced. I suspect that likely many of patient's symptoms are a combination of PD progression, PD off time, PD non motor symptoms, possible adverse effects of entacapone, as well as multifactorial causes including cardiovascular disease with recent echocardiogram showing reduced LV ejection fraction. Discussed PD diagnosis and clinical symptoms supportive of PD diagnosis, natural trajectory of PD, and reasonable expectations from PD tx's. List of Parkinson's education resources shared with patient and family. As patient is experiencing greater than 3 hours of off time on her current PD med regimen, we will trial patient on Crexont. Trial Crexont (carbidopa-levodopa extended release capsule) 35-140 mg capsule, 2 caps p.o. 4 times per day. Discontinue entacapone 200 mg 4 times a day order completely- as this has not improved on time and possibly is causing side effects of mood and behavior changes. Once Crexont available, discontinue Rytary 36.25-145mg order. In the meantime adjust Rytary 36.25-145mg- 2 caps q.a.m., then 1 cap every 3 hours (max of 8 caps per day). Continue Magnesium Oxide 400mg at bedtime. Continue Miralax to 1/2-1 cap every other day prn. Continue Pregabalin 125mg (100mg + 25mg) po tid. Continue home PT. Follow-up w/ physiatry as scheduled. Previous med tx's: CD-LD- wearing off. Ropinirole at 0.25mg tid- not very effective. Entacapone- ineffective and not tolerated. Future considerations: Subcutaneous carbidopa levodopa infusion, subcutaneous apomorphine infusion. Recent Brain MRA- stable. ? F/u in 3-6 months or sooner prn new/worsening s/s. Medications: New carbidopa-levodopa 35-140 mg ER (Crexont) 2 caps (2 x 35-140 mg) PO QID 30 days 240 ea 6RF Refilled pregabalin take w/ 25mg cap to total 125mg per dose 100 mg PO TID 30 days 90 caps 5RF pregabalin take w/ 100mg cap to total 125mg per dose 25 mg PO TID 30 days 90 caps 3RF Coding Level of Care Code Est Pt Level 4 (31987) Complex EM visit Add On G2211 Diagnoses Parkinson's disease with dyskinesia and fluctuating manifestations G20.B2 Fluctuating manifestations: with fluctuating manifestations Polyneuropathy G62.9 Cerebral aneurysm I67.1 Right foot drop M21.371 Bradykinesia R25.8 Gait difficulty R26.9 Time Spent (min) 60
--- OUTSIDE RECORDS SUMMARY | 2024-12-09 14:06 | XMS_ITS | Encounter Summary ---
Author Organization [facility] Address [address] [place] [phone] Care Team Providers Care Catering Chef Name Role Phone Kunal Quan MD Primary Care Provider [phone] Reason for Referral * Imaging (Routine) - Closed Specialty Diagnoses / Procedures Referred By Aldo frias Referred To Contact Diagnostic Radiology Procedures MRA Brain without IV Contrast Neurosurgery at [address] [place] [phone] Phone: tel: fax: Referral ID Status Reason Start Date Expiration Date Visits Re quested Visits Authorized [id number] Closed 04/30/2023 04/29/2024 1 1 Encounter Details Date Type Department Care Team (Late st Contact Info) Description 04/30/2023 Scanned Document Neurosurgery at [address] [place] [phone] ProviderMatt . Social History Tobacco Use Types Packs/Day Years Used Date Smoking Tobacco: Never Smokeless Tobacco: Never Alcohol Use Standard Drinks/Week Comments Not Currently 0 (1 standard drink = 0.6 oz pur e alcohol) Comments Unknown Sex and Gender Information Value Date Recorded Sex Assigned at Not on file Legal Sex Female 1:42 PM EST Gender Identity Not on file Sexual Orientation Not on file documented as of this encounter Plan of Treatment Not on file documented as of this encounter Procedures Procedure Name Priority Date/Time Associated Diagnosis Comments MRA BRAIN WO IV CONTRAST Routine 04/16/2023 documented in this encounter Results * MRA Brain without IV Contrast (04/16/2023) Anatomical Region Laterality Modality Head, Vascular Magnetic Resonan ce us Historical Provider IMG MRI ORDERABLES Final Res ult documented in this encounter Visit Diagnoses Not on filedocumented in this encounter Care Teams Catering Chef Relationship Specialty Start Date End Date Kunal Quan MD [address] [place] [phone] PCP - General Internal Medicine 07/07/19 documented as of this encounter
--- OUTSIDE RECORDS SUMMARY | 2024-12-09 14:06 | XMS_ITS | Encounter Summary ---
Author Organization [facility] Address [address] [place] [phone] Care Team Providers Care Back Shoe Worker Name Role Phone Kunal Quan MD Primary Care Provider [phone] Reason for Referral * Imaging (Routine) - Closed Specialty Diagnoses / Procedures Referred By Aldo frias Referred To Contact Diagnostic Radiology Procedures MRA Brain without IV Contrast Lobito Hayden MD [address] [place] [address] Phone: tel: fax: Referral ID Status Reason Start Date Expiration Date Visits Re quested Visits Authorized [id number] Closed 04/24/2021 04/24/2022 1 1 Encounter Details Date Type Department Care Team (Late st Contact Info) Description 04/24/2021 Scanned Document [facility] at [address] [place] [address] Lobito Hayden MD [address] [place] [address] Social History Tobacco Use Types Packs/Day Years [...] Comments MRA BRAIN WO IV CONTRAST Routine 04/06/2021 documented in this encounter Results * MRA Brain without IV Contrast (04/06/2021) Anatomical Region Laterality Modality Head, Vascular Magnetic Resonan ce Lobito Hayden MD IMG MRI ORDERABLES Final Re sult documented in this encounter Visit Diagnoses Not on filedocumented in this encounter Care Teams Back Shoe Worker Relationship Specialty Start Date End Date Kunal Quan MD [address] [place] [phone] PCP - General Internal Medicine 07/07/19 documented as of this encounter
--- OUTSIDE RECORDS SUMMARY | 2024-12-09 14:06 | XMS_ITS | Encounter Summary ---
Author Organization [facility] Address [address] [place] [phone] Care Team Providers Care Betting Agency Manager Name Role Phone Kunal Quan MD Primary Care Provider [phone] Reason for Referral * Imaging (Routine) - New Request Specialty Diagnoses / Procedures Referred By Aldo frias Referred To Contact Diagnostic Radiology Procedures MRA Brain without IV Contrast Lobito Hayden MD [address] [place] [address] [place] [address] Phone: tel: fax: Referral ID Status Reason Start Date Expiration Date V isits Requested Visits Authorized [id number] New Request 06/19/2024 06/19/2025 1 1 Encounter Details Date Type Department Care Team (Late st Contact Info) Description 06/19/2024 Scanned Document [facility] at [address] [place] [address] Lobito Hayden MD [facility] [address] [place] [address] Social History Tobacco Use Types [...] Comments MRA BRAIN WO IV CONTRAST Routine 06/19/2024 4:42 PM EST documented in this encounter Results * MRA Brain without IV Contrast (06/19/2024 4:42 PM EST) Anatomical Region Laterality Modality Head, Vascular Magnetic Resonan ce Lobito Hayden MD IMG MRI ORDERABLES Final Re sult documented in this encounter Visit Diagnoses Not on filedocumented in this encounter Care Teams Betting Agency Manager Relationship Specialty Start Date End Date Kunal Quan MD [address] [place] [phone] PCP - General Internal Medicine 07/07/19 documented as of this encounter
--- OUTSIDE RECORDS SUMMARY | 2024-12-09 14:06 | XMS_ITS | Clinical Summary ---
Author Organization [facility] Address [address] [place] [address] Care Team Providers Care Board Certified Arts Therapist Name Role Phone Kunal Quan MD Primary Care Provider [phone] Allergies Active Allergy Reactions Criticality Noted Date Comments Fexofenadine Other (See Comments),Headache Medium 07/06/2019 Nitrofurantoin Monohyd/M-Cryst Rash Low 07/06/2019 Oxycodone Other (See Comments) Medium 07/06/2019 Oxycodone-Acetaminophen Unknown 05/22/2022 Medications hydroCHLOROthia zide (MICROZIDE) 12.5 mg capsule TAKE 1 C BY MOUTH EVERY DAY 2 04/18/2019 Active atorvastatin (LIPITOR) 10 mg tablet TK 1 T PO D 1 04/18/2019 Active omeprazole (PRILOSEC) 20 mg capsule Take 1 capsule (20 mg total) by mouth daily. Active aspirin 81 mg EC delayed release tablet Take 1 tablet (81 mg total) by mouth daily. Active carbidopa-levod opa (SINEMET) 25-100 mg per immediate release tablet TK 1 T PO TID. TK WITH CRACKERS 30 MIN BEFORE FULL MEAL OR PROTEIN 6 06/22/2019 Active fluticasone propionate (FLONASE) 50 mcg/actuation nasal spray SHAKE LQ AND U 1 SPR IEN BID 3 04/14/2019 Active amLODIPine-flavia zepril (LOTREL) 5-20 mg per capsule TAKE 1 CAPSULE BY MOUTH EVERY DAY FOR 90 DAYS 04/07/2022 Active rOPINIRole (REQUIP) 0.25 mg tablet TAKE 1 TABLET BY MOUTH THREE TIMES DAILY 03/28/2022 Active triamcinolone acetonide (NASACORT) 55 mcg/actuation nasal spray INHALE 1 SPRAY IN EACH NOSTRIL TWICE DAILY 03/03/2022 Active pregabalin (LYRICA) 100 mg capsule TAKE 1 CAPSULE BY MOUTH THREE TIMES DAILY 05/11/2022 Active tobramycin-dexa methasone (TOBRADEX) 0.3-0.1 % ophthalmic solution SHAKE LIQUID AND INSTILL 1 DROP IN LEFT EYE FOUR TIMES DAILY 04/23/2023 Active levocetirizine (XYZAL) 5 mg tablet Take 1 tablet (5 mg total) by mouth every evening before dinner. 04/27/2024 Active magnesium oxide (MAG-OX) 400 mg (241.3 mg magnesium) tablet Take 1 tablet (400 mg total) by mouth daily. 05/21/2024 Active Active Problems Problem Noted Date Diagnosed Date Gastroesophageal reflux disease 05/22/2022 Hypertension 05/22/2022 Impairment of balance 05/22/2022 Irritable bowel syndrome 05/22/2022 Osteoporosis 05/22/2022 Rhinitis 05/22/2022 Spinal stenosis of cervical region 05/22/2022 Tubular adenoma of colon 07/02/2018 Cerebral aneurysm, nonruptured Overview (07/07/2019): 4mm right supraclinoid ICA aneurysm Encounters Date Type Department Care Team Description 11/02/2024 Orders Only [facility] at [address] [place] [id number] Greg Luz MD Cerebral aneurysm, nonruptured (Primary Dx) from Last 3 Months Social History Tobacco Use Types Packs/Day Years Used Date Smoking Tobacco: Never Smokeless Tobacco: Never Alcohol Use Standard Drinks/Week Comments Not Currently 0 (1 standard drink = 0.6 oz pur e alcohol) Comments Unknown Sex and Gender Information Value Date Recorded Sex Assigned at Not on file Legal Sex Female 1:42 PM EST Gender Identity Not on file Sexual Orientation Not on file Last Filed Vital Signs Vital Sign Reading Time Taken Comments Blood Pressure 126/74 07/06/2019 3:06 PM EST Pulse - - Temperature - - Respiratory Rate - - Oxygen Saturation - - Inhaled Oxygen Concentration - - Weight 49.9 kg (110 lb) 06/22/2024 8:50 AM EST p er pt Height 152.4 cm (5') 06/22/2024 8:50 AM EST Body Mass Index 21.48 06/22/2024 8:50 AM EST Plan of Treatment Health Maintenance Due Date Last Done Comments HIV screening 10/22/1958 Diabetes screening 10/22/1961 Lipid disorder screening 1983 Pneumococcal Vaccine (50+ years) (1 of 1 - PCV) 10/22/1993 Shingles vaccine (Shingrix) (1 of 2 - Shingrix (RZV) 2 Dose Standard Series) 10/22/1993 Osteoporosis screening (bone density) 10/22/2008 RSV Immunization (1 - 1-dose 75+ series) 10/22/2018 Covid-19 vaccine series ( season) 2024 Influenza vaccine 04/12/2025 05/21/2006, 06/01/2005 Tetanus adult (Td q 10,TDAP once) 12/27/2031 12/26/2021, 07/12/1998 Breast cancer screening Discontinued Cervical cancer screening Discontinued Meningococcal Vaccine Aged Out No fabiana carmen eligible based on patient's age to complete this topic Insurance [place] [facility] [place] [place] [facility] [place] Care Teams Board Certified Arts Therapist Relationship Specialty Start Date End Date Kunal Quan MD [address] [place] [phone] PCP - General Internal Medicine 07/07/19
== END 2024-12-09 14:38 | disposition home or self-care (01) ==
LOC: HO.HSMS 12:52
PROVIDERS: PCP Internal Medicine; Visit Provider Nurse Practitioner Family
DX: G20.B2 Parkinson's disease with dyskinesia, with fluctuations (principal); G62.9 Polyneuropathy, unspecified; I67.1 Cerebral aneurysm, nonruptured; M21.371 Foot drop, right foot; R25.8 Other abnormal involuntary movements; R26.9 Unspecified abnormalities of gait and mobility
CPT/HCPCS: 99214

== ENCOUNTER → 2024-12-09 12:52 | Outpatient (BNVA) | payer OTHER, SELFPAY | PROVIDERS: PCP Internal Medicine; Visit Provider Nurse Practitioner Family ==

== ENCOUNTER 2025-06-10 13:23 | Outpatient (AMB) | payer OTHER, SELFPAY ==
--- NOTE | 2025-06-10 13:24 | A.OFFVIS_ITS ---
Vital Signs 06/10/25 13:25 Height 5 ft BP 128/76 Blood Pressure Location Rt brachial Position Sitting Pulse 88 Pulse Source Pulse Oximeter Pulse Oximetry (%) 97 Oxygen Delivery Method Room Air Intake Visit Reasons: 6mnth Follow Up Intake Note: Follow up Parkinson's Disease Operations Officer Afloat Required: No Accompanied by: Spouse Allergies oxycodone Allergy (Severe, Verified 06/10/25 13:25) Dizziness nitrofurantoin (From Macrobid) Allergy (Mild, Verified 06/10/25 13:25) Rash fexofenadine (From Omayra) Adverse Reaction (Mild, Verified 06/10/25 13:25) Headache HPI Comments Details: 79-yr-old female presents for f/u visit of Parkinson's. Pt is accompanied by her , Chiki, and her son, Kurt. After the last visit, patient weaned herself off of Rytary and entacapone, and finish taking it completely on April 10. She also decreased her dose of pregabalin from 125 mg 3 times a day to 25 mg 3 times a day. During this time, the patient had improved daytime alertness, however also experienced increased slowness, rigidity, mobility difficulties, bed mobility difficulties, and sleep difficulties. Also during this time, she continued to have dyspnea symptoms. Her PCP had started her on a diuretic, however this was later discontinued. She has lost some weight since her last visit here. Then, her PCP encouraged her to resume her Parkinson's treatments. Therefore, May 25 she resumed Crexont 35-140 mg, in his currently taking 1 cap 3 times a day. She is supposed to be starting home PT in the near future. Pt's current PD medication regimen: Crexont 35-140 mg- 1 cap 3 times a day.Pregabalin 25mg tid. Occasionally, may have some sinus headache. The left maxillary sinus may be sore at times- where she had the dental procedure. ADL's: She is needing increased assist Swallowing: Has to be careful to swallow. May cough on water or solid foods. Cough: Prone to coughing and SOB when laying down. Drooling: Mild drooling when laying down. Mouth continues to be dry, even when off of Rytary Orthostatic lightheadedness: Patient is no longer ambulating She is trying to drink enough fluids. Constipation: Can be constipated- eating prunes/figs, miralax may help if taken with prune juice Freezing: RLE difficulty initiating movement. Gait: Is not walking. Stiffness: Generalized stiffness and muscle achiness Tremor: None Hallucinations: None Mood: Mood is overall better, however son notes that sometimes she will react more strongly to smaller things. Memory: Some STM or word-finding difficulties Sleep: Sleep is impaired due to back pain, joint pain, breathing difficulties. She is no longer able to move in bed, even with a hand rail. They plan to go look at a power recliner with heating and massage capabilities, in hopes this may help her sleep better. She may occasionally snore. She is curious about trying melatonin for sleep. Other: States her feet maybe sore, especially when swollen. Her feet are not currently swollen. Again she did decrease the pregabalin dose. [facility] Medical History Parkinson disease Right foot drop Surgical History H/O foot surgery H/O: hysterectomy H/O hernia repair Social History Alcohol intake: never Patient Tobacco Use Status: Never used Tobacco Physical Exam Vital Signs: Last Vital Signs Pulse 88 06/10/25 13:25 BP 128/76 06/10/25 13:25 Pulse Ox 97 06/10/25 13:25 Oxygen Delivery Method Room Air 06/10/25 13:25 Const General: cooperative and no acute distress Resp Effort & Inspection: normal respiratory effort and able to speak in complete sentences Neuro Other: Cognition: A&O x's 3 Expression: decreased expression and blink Voice: hoarseness w/ hypophonia Tremor: No visible rest tremor today. Dyskinesia: No dyskinesia today Tone: BUE and BLE, L > R, rigidity MS: On arm raise, only able to raise bilateral forearms against gravity. She can not raise entirety of bilateral arms against gravity. She can not raise right foot against gravity. FFM: Marked bradykinesia, more so on the left Foot taps: Marked bradykinesia, more so on the right. Gait: Sitting upright in w/c. Psych: Pleasant affect. Results Reviewed Results Reviewed: 10/28/2024, TTE procedure:Echo Complete-Doppler, Colorflow, M-Mode. Completed at [facility]. Summary The left ventricular ejection fraction is 45-50 %. There is mild global hypokinesis of the left ventricle. Normal right ventricular size and function. No significant valvular disease. The ascending aorta is mildly dilated at 4.0 cm (leading edge-leading edge, indexed for sex and BSA). 06/16/2024, head MRA/MRV without contrast: Completed at [facility] FINDINGS: Anterior circulation: The bilateral intracranial internal carotid arteries are patent. The bilateral anterior cerebral arteries and bilateral middle cerebral artery branches are patent. Redemonstrated is a medially projecting outpouching arising from the ophthalmic segment of the right internal carotid artery measuring approximately 3 x 2 mm, unchanged. No new aneurysm is identified. Posterior circulation: The bilateral intracranial vertebral arteries, basilar artery, superior cerebellar arteries, and bilateral posterior cerebral arteries are patent. The right posterior communicating artery is robust and patent. The left posterior commuting artery is patent. Other findings: Limited visualization of the intracranial and extracranial structures demonstrates no significant abnormality. IMPRESSION: Stable right ophthalmic ICA aneurysm. No new aneurysm. Assessment & Plan Assessment & Plan (1) Parkinson's disease with dyskinesia: Code(s): G20.B1 - Parkinson's disease with dyskinesia, without mention of fluctuations Category: Medical (2) Polyneuropathy: Comment: BUE EMG/NCS 2017: mild right median neuropathy at wrist; mild bilateral nerve entrapment at elbows; diffuse poly-sensory demyelinating neuropathy. BLE EMG/NCS 2017: BLE sural sensory neuropathy; right S1 radiculopathy w/ prolonged H reflex; BLE L5 chronic radiculopathy with peroneal/fibular reduced amplitude w/out conduction block. BLE skin biopsy: small fiber neuropathy. Code(s): G62.9 - Polyneuropathy, unspecified Category: Medical (3) Cerebral aneurysm: Comment: Followed by Neurosurgery Code(s): I67.1 - Cerebral aneurysm, nonruptured Category: Medical (4) Right foot drop: Code(s): M21.371 - Foot drop, right foot Category: Medical (5) Bradykinesia: Code(s): R25.8 - Other abnormal involuntary movements Category: Medical Plan Previously reviewed PD diagnosis and clinical symptoms supportive of PD diagnosis, natural trajectory of PD, and reasonable expectations from PD tx's. List of Parkinson's education resources previously shared with patient and family. As patient is experiencing greater than 3 hours of off time on her current PD med regimen, I have advised patient to increase Crexont therapy in hopes this will reduce rigidity, generalized pain and stiffness, bradykinesia, and improve mobility. * Stop Crexont (carbidopa-levodopa extended release capsule) 35-140 mg capsule, from 1 cap 3 times a day * Start Crexont 35-140mg cap, 2 tabs in am and 1 cap in afternoon and evening x's a few weeks, then if tolerated well, increase to 2 caps in am, 1 cap in afternoon, and 2 caps in the evening. Continue Magnesium Oxide 400mg at bedtime. Continue Pregabalin 25 mg 3 times a day for neuropathic foot pain * We will provide additional pregabalin 50 mg tablet, which she may use at bedtime in place of 25 mg tablet (note- her insurance will not cover a larger quantity of 25 mg capsule to allow an extra PRN dose) For constipation: * Information shared on home constipation treatments, such as prune/brand/applesauce puddings * Miralax to 1/2-1 cap every other day prn. For intermittent swallowing difficulties: * Reviewed safe swallowing strategies. If worsens, consider ELECTRIC SCREW DRIVER OPERATOR therapy. For rigidity, bradykinesia, deconditioning: * Start home PT- and encouraged patient to do the PT exercises on her own in between PT visits. * Follow-up w/ physiatry if pain symptoms do not improve For sleep: * May trial OTC melatonin 1-3 mg daily in the evening * Discussed sleep study, however patient and family declined at this time. * Concur with trying a sit to stands recliner, that patient may sleep more comfortably in. Previous med tx's: CD-LD- wearing off. Ropinirole at 0.25mg tid- not very effective. Entacapone- ineffective and not tolerated. Future considerations: Subcutaneous carbidopa levodopa infusion, subcutaneous apomorphine infusion. Recent Brain MRA- stable. ? F/u in 3-6 months or sooner prn new/worsening s/s. Medications: New pregabalin May take with 25 mg bedtime dose 50 mg PO BEDTIME PRN 30 caps 0RF Painful neuropathy 30 days Changed From pregabalin take w/ 100mg cap to total 125mg per dose 25 mg PO TID 30 days 90 caps 3RF To pregabalin May take evening dose with 50 mg capsule 25 mg PO TID 90 caps 3RF 30 days Discontinued ropinirole Discontinued Reason: Patient no longer taking 0.25 mg PO TID 30 days 90 tabs 3RF pregabalin take w/ 25mg cap to total 125mg per dose Discontinued Reason: Patient no longer taking 100 mg PO TID 30 days 90 caps 5RF carbidopa-levodopa 36.25-145 mg ER (Ryta) Discontinued Reason: Doctor's Order 2 caps orally 5 times per day; divide evenly over waking hours 30 days 300 caps 6RF Coding Level of Care Code Est Pt Level 4 (50155) Complex EM visit Add On G2211 Diagnoses Parkinson's disease with dyskinesia G20.B1 Polyneuropathy G62.9 Cerebral aneurysm I67.1 Right foot drop M21.371 Bradykinesia R25.8
[2025-06-10 13:25] VITALS: BP 128/76; PULSE 88; O2SAT 97
--- OUTSIDE RECORDS SUMMARY | 2025-06-10 16:29 | XMS_ITS | Encounter Summary ---
Author Organization [facility] and [facility] Address [address] [place] [phone] Care Team Providers Care Dock Grader Name Role Phone Kunal Quan MD Primary Care Provider [phone] Reason for Referral * Imaging (Routine) - Closed Specialty Diagnoses / Procedures Referred By Aldo frias Referred To Contact Diagnostic Radiology Procedures MRA Brain without IV Contrast Lobito Hayden MD [address] [place] [address] Phone: tel: fax: Referral ID Status Reason Start Date Expiration Date Visits Re quested Visits Authorized [id number] Closed 04/24/2021 04/24/2022 1 1 Encounter Details Date Type Department Care Team (Late st Contact Info) Description 04/24/2021 Scanned Document [facility] at [address] [place] [address] Lobito Hayden MD [address] [place] [address] Social History Tobacco Use Types [...] on filedocumented in this encounter Care Teams Dock Grader Relationship Specialty Start Date End Date Kunal Quan MD [address] [place] [phone] PCP - General Internal Medicine 07/07/19 documented as of this encounter
--- OUTSIDE RECORDS SUMMARY | 2025-06-10 16:29 | XMS_ITS | Encounter Summary ---
Author Organization [facility] and [facility] Address [address] [place] [phone] Care Team Providers Care Telecommunications Project Manager Name Role Phone Kunal Quan MD Primary Care Provider [phone] Reason for Referral * Imaging (Routine) - New Request Specialty Diagnoses / Procedures Referred By Aldo frias Referred To Contact Diagnostic Radiology Procedures MRA Brain without IV Contrast Lobito Hayden MD [address] [place] [address] [place] [address] Phone: tel: fax: Referral ID Status Reason Start Date Expiration Date V isits Requested Visits Authorized [id number] New Request 06/19/2024 06/19/2025 1 1 Encounter Details Date Type Department Care Team (Late st Contact Info) Description 06/19/2024 Scanned Document [facility] [address] [place] [address] Lobito Hayden MD [facility] [place] [address] Social History Tobacco Use Types [...] on filedocumented in this encounter Care Teams Telecommunications Project Manager Relationship Specialty Start Date End Date Kunal Quan MD [address] [place] [phone] PCP - General Internal Medicine 07/07/19 documented as of this encounter
--- OUTSIDE RECORDS SUMMARY | 2025-06-10 16:29 | XMS_ITS | Clinical Summary ---
Author Organization [facility] [employer] Address [address] [place] [address] Care Team Providers Care Motorboat Mechanic Helper Name Role Phone Kunal Quan MD Primary Care Provider [phone] Allergies Active Allergy Reactions Criticality Noted Date [...] Overview (07/07/2019): 4mm right supraclinoid ICA aneurysm Social History Tobacco Use Types Packs/Day Years [...] Immunization (1 - 1-dose 75+ series) 10/22/2018 Influenza vaccine 03/12/2025 05/21/2006, 06/01/2005 Covid-19 vaccine series ( - 2024- season) 2025 Tetanus adult (Td q 10,TDAP once) 12/27/2031 12/26/2021, 07/12/1998 Breast cancer screening Discontinued Cervical cancer screening Discontinued Colon cancer screening, Colonoscopy Discontinued Meningococcal B Vaccine Aged Out No l onger eligible based on patient's age to complete this topic Meningococcal Vaccine Aged Out No fabiana carmen eligible based on patient's age to complete this topic Insurance MEDICARE MANAGED [facility] MEDICARE MANAGED [facility] MEDICARE [facility]NA[facility]ED [facility] Care Teams Motorboat Mechanic Helper Relationship Specialty Start Date End Date Kunal Quan MD [address] [place] [phone] PCP - General Internal Medicine 07/07/19
--- OUTSIDE RECORDS SUMMARY | 2025-06-10 16:29 | XMS_ITS | Encounter Summary ---
Author Organization [facility] and [facility] Address [address] [place] [phone] Care Team Providers Care Quality Director Name Role Phone Kunal Quan MD Primary Care Provider [phone] Reason for Referral * Imaging (Routine) - Closed Specialty Diagnoses / Procedures Referred By Aldo frias Referred To Contact Diagnostic Radiology Procedures MRA Brain without IV Contrast Neurosurgery at [address] [place] [phone] Phone: tel: fax: Referral ID Status Reason Start Date Expiration Date Visits Re quested Visits Authorized [id number] Closed 04/30/2023 04/29/2024 1 1 Encounter Details Date Type Department Care Team (Late st Contact Info) Description 04/30/2023 Scanned Document Neurosurgery at [address] [place] [phone] ProviderMatt . Social History Tobacco Use Types [...] on filedocumented in this encounter Care Teams Quality Director Relationship Specialty Start Date End Date Kunal Quan MD [address] [place] [address] PCP - General Internal Medicine 07/07/19 documented as of this encounter
== END 2025-06-10 14:53 | disposition home or self-care (01) ==
LOC: HO.HSMS 13:23
PROVIDERS: PCP Internal Medicine; Visit Provider Nurse Practitioner Family
DX: G20.B1 Parkinson's disease with dyskinesia, without mention of fluctuations (principal); G62.9 Polyneuropathy, unspecified; I67.1 Cerebral aneurysm, nonruptured; M21.371 Foot drop, right foot; R25.8 Other abnormal involuntary movements
CPT/HCPCS: 99214; G2211